=== PATIENT | female | born 1980 | race American Indian/Alaskan Native ===

== ENCOUNTER 2018-01-04 01:08 | Emergency (ER) | payer SELFPAY ==
[2018-01-04] MEDS ORDERED: NORCO 5/325 PO ONE (07:40)
[2018-01-04] MEDS ORDERED: TRIMOX PO ONE (07:40)
--- NOTE | 2018-01-04 07:43 | Emergency Department Report ---
ED ENT HPI - General Chief complaint: Dental/Oral Stated complaint: TOOTHACHE Time Seen by Provider: 01/04/18 07:39 Source: patient, family Mode of arrival: Ambulatory Limitations: No Limitations - History of Present Illness MD complaint: tooth pain -: Gradual, week(s) (2) Severity: moderate Consistency: constant Worsens with: eating Context- Dental: history of dental caries Associated Symptoms: toothache. denies: fever, cough, gum swelling, pain with swallowing, sore throat, tinnitus, hearing loss, discharge from ear, rhinorrhea , other - Related Data Previous Rx's Medication Instructions Recorded Last Taken Type Amoxicillin 500 mg PO BID #20 capsule 01/04/18 Unknown Rx Naproxen [Naprosyn] 500 mg PO BID PRN #20 tablet 01/04/18 Unknown Rx traMADol [Ultram] 50 mg PO Q6HR PRN #10 tablet 01/04/18 Unknown Rx ED Dental HPI - General Chief complaint: Dental/Oral Stated complaint: TOOTHACHE Time Seen by Provider: 01/04/18 07:39 Source: patient Mode of arrival: Ambulatory Limitations: No Limitations - Related Data Previous Rx's Medication Instructions Recorded Last Taken Type Amoxicillin 500 mg PO BID #20 capsule 01/04/18 Unknown Rx Naproxen [Naprosyn] 500 mg PO BID PRN #20 tablet 01/04/18 Unknown Rx traMADol [Ultram] 50 mg PO Q6HR PRN #10 tablet 01/04/18 Unknown Rx ED Review of Systems ROS: Stated complaint: TOOTHACHE Other details as noted in HPI Comment: All other systems reviewed and negative ENT: other (dental pain broke tooth 2 w ago. started to hurt last pm) ED Past Medical Hx - Past Medical History Previous Medical History?: No - Surgical History Past Surgical History?: No - Social History Smoking Status: Current Every Day Smoker Substance Use Type: Alcohol - Medications Home Medications: Home Medications Medication Instructions Recorded Confirmed Last Taken Type Amoxicillin 500 mg PO BID #20 capsule 01/04/18 Unknown Rx Naproxen [Naprosyn] 500 mg PO BID PRN #20 tablet 01/04/18 Unknown Rx traMADol [Ultram] 50 mg PO Q6HR PRN #10 tablet 01/04/18 Unknown Rx ED Physical Exam - General Limitations: No Limitations General appearance: alert - Head Head exam: Present: atraumatic - Eye Eye exam: Present: normal appearance, PERRL - ENT ENT exam: Present: mucous membranes moist - Expanded ENT Exam Expanded Mouth exam: Present: normal external inspection, tongue normal, tongue elevation. Absent: drooling, trismus, muffled voice, laceration Teeth exam: Present: dental caries 1 - Fractured Throat exam: Positive: normal inspection, tonsillar erythema. Negative: tonsillomegaly, tonsillar exudate, R peritonsillar mass, L peritonsillar mass - Neck Neck exam: Present: normal inspection. Absent: tenderness, meningismus - Respiratory Respiratory exam: Present: normal lung sounds bilaterally - Cardiovascular Cardiovascular Exam: Present: regular rate - GI/Abdominal GI/Abdominal exam: Present: soft - Extremities Exam Extremities exam: Present: normal inspection, full ROM - Back Exam Back exam: Present: normal inspection, full ROM - Neurological Exam Neurological exam: Present: alert, oriented X3, CN II-XII intact, normal gait - Psychiatric Psychiatric exam: Present: normal affect, normal mood ED Course Vital Signs 01/04/18 04:32 Temperature 98.7 F Pulse Rate 95 H Respiratory 18 Rate Blood Pressure 176/110 O2 Sat by Pulse 100 Oximetry ED Medical Decision Making - Medical Decision Making simple caries - Differential Diagnosis dental disease Critical care attestation.: If time is entered above; I have spent that time in minutes in the direct care of this critically ill patient, excluding procedure time. ED Disposition Clinical Impression: Pain, dental, Tooth caries Disposition: - TO HOME OR SELFCARE Is pt being admited?: No Does the pt Need Aspirin: No Condition: Stable Instructions: Dental Caries (ED) Additional Instructions: DMD marilee remember this is only fixing the problem temporarily Referrals: SHASTA BRITTON MD [Primary Care Provider] - 3-5 Days [facility] [Outside] - 3-5 Days Time of Disposition: 07:41
[2018-01-04 08:12] VITALS: BP 136/87
== END 2018-01-04 08:06 | disposition home or self-care (01) ==
LOC: ED 01:08
DX: K08.89 Other specified disorders of teeth and supporting structures (principal); K02.9 Dental caries, unspecified; F17.200 Nicotine dependence, unspecified, uncomplicated
CPT/HCPCS: 99282